=== PATIENT | female | born 1950 | race Caucasian/White ===

== ENCOUNTER 2021-10-20 04:25 | Inpatient (IN) | payer MEDICARE, OTHER ==
[~2021-10-20] VITALS: Ht 157.5 cm; Wt 61.2 kg
[~2021-10-20 04:25] MED LIST: ALPRAZOLAM0.5 MG PO; COLACE 100MG C100 MG PO; CYMBALTA 30 MG30 MG PO; GLUCOPHAGE XR750 MG PO; MIRALAX17 GM PO; NORVASC 5 MG TAB5 MG PO; PRINIVIL10 MG PO; SYNTHROID50 MCG PO; [UNRECOGNIZED DRUG - OTHER]
[2021-10-20] MEDS ORDERED: ISOSORBIDE MONO30 MG PO (10:36)
[2021-10-20] MEDS ORDERED: TRADJENTA5 MG PO (10:36)
[2021-10-20] MEDS ORDERED: ATORVASTATIN CA40 MG PO (10:36)
[2021-10-20] MEDS ORDERED: TASIGNA150 MG PO (10:37)
[2021-10-20] MEDS ORDERED: HYDROCODON-ACE1 EAC4 PO (10:37)
[2021-10-20] MEDS ORDERED: ALLOPURINOL300 MG PO (10:37)
[2021-10-20] MEDS ORDERED: VOLTAREN ARTHRI20 GM TP (10:38)
[2021-10-20] MEDS ORDERED: CELECOXIB200 MG PO (10:38)
[2021-10-21 09:29] LABS: RED BLOOD COUNT 2.6 M/UL (4.00-5.10); WHITE BLOOD COUNT 29.5 K/UL (4.5-11.0)
[2021-10-21 09:30] LABS: HEMOGLOBIN 7.7 gm/dl (12.3-15.3)
[2021-10-22 08:06] LABS: RED BLOOD COUNT 2.47 M/UL (4.00-5.10)
[2021-10-22 08:41] LABS: WHITE BLOOD COUNT 32.7 K/UL (4.5-11.0)
--- NOTE | 2021-10-22 11:02 | NUR ---
NOTIFIED AT 0900 THAT PT WBC WAS 30 HGB OF 7
[2021-10-23 06:50] LABS: RED BLOOD COUNT 2.35 M/UL (4.00-5.10)
[2021-10-23 06:59] LABS: HEMOGLOBIN 6.9 gm/dl (12.3-15.3); WHITE BLOOD COUNT 34.1 K/UL (4.5-11.0)
--- NOTE | 2021-10-23 07:02 | NUR ---
NOTIFIED MD OF CRITICAL HGB AND WBC NO ORDERS GIVEN WILL NOTIFY DAYSHIFT FOR PT IS ONCOLOGY/HEMATOLOGY PATIENT
[2021-10-23 11:14] LABS: HBSAG SCREEN Negative (Negative); HEP A AB, IGM Negative (Negative); HEP B CORE AB, IGM Negative (Negative); HEP C VIRUS AB 0.2 (0.0-0.9)
[2021-10-24 06:32] LABS: HEMOGLOBIN 8.7 gm/dl (12.3-15.3); RED BLOOD COUNT 2.98 M/UL (4.00-5.10); WHITE BLOOD COUNT 26.5 K/UL (4.5-11.0)
[2021-10-24] MEDS ORDERED: SODIUM BICARBO650 M1 PO (13:10)
== END 2021-10-24 16:11 | disposition home or self-care (01) | DRG 682 ==
LOC: M/S 06:10
PROVIDERS: Internal Medicine; Internal Medicine Hematology & Oncology; Internal Medicine Nephrology; Registered Nurse; ADMIT Internal Medicine
PROC: 30233N1 Transfusion of Nonautologous Red Blood Cells into Peripheral Vein, Percutaneous Approach (ICD-10-PCS; principal; 2021-10-23)
DX: N17.9 Acute kidney failure, unspecified (principal); G93.41 Metabolic encephalopathy; C92.10 Chronic myeloid leukemia, BCR/ABL-positive, not having achieved remission; E87.2 Acidosis; R65.10 Systemic inflammatory response syndrome (SIRS) of non-infectious origin without acute organ dysfunction; S36.119A Unspecified injury of liver, initial encounter; E87.1 Hypo-osmolality and hyponatremia; N14.1 Nephropathy induced by other drugs, medicaments and biological substances; R74.01 Elevation of levels of liver transaminase levels; G89.29 Other chronic pain; E03.9 Hypothyroidism, unspecified; F41.9 Anxiety disorder, unspecified; T45.1X5A Adverse effect of antineoplastic and immunosuppressive drugs, initial encounter; I11.0 Hypertensive heart disease with heart failure; I50.9 Heart failure, unspecified; D63.0 Anemia in neoplastic disease; E78.5 Hyperlipidemia, unspecified; E80.6 Other disorders of bilirubin metabolism; E11.9 Type 2 diabetes mellitus without complications; Z85.038 Personal history of other malignant neoplasm of large intestine; Z98.890 Other specified postprocedural states; Z79.899 Other long term (current) drug therapy; Z80.3 Family history of malignant neoplasm of breast; Z79.84 Long term (current) use of oral hypoglycemic drugs; K75.89 Other specified inflammatory liver diseases
CPT/HCPCS: ECHO; 36415; 71045; 76705; 80053; 80074; 81001; 82140; 82248; 82803; 82962; 83605; 83615; 83735; 84100; 84443; 84550; 85007; 85025; 85027; 86850; 86900; 86901; 86920; 87040; 87086; 93005; 93306; 94760; 97161; 97165; J1940; J2270; J7030; P9040; P9047; U0002

== ENCOUNTER → 2022-01-27 | Outpatient (CLI) | payer MEDICARE, OTHER ==
[~2022-01-27] MED LIST changes: +ALLOPURINOL300 MG PO; +ATORVASTATIN CA40 MG PO; +CELECOXIB200 MG PO; +HYDROCODON-ACE1 EAC4 PO; +ISOSORBIDE MONO30 MG PO; +SODIUM BICARBO650 M1 PO; +TASIGNA150 MG PO; +TRADJENTA5 MG PO; +VOLTAREN ARTHRI20 GM TP
[2022-01-27 14:01] LABS: HEMOGLOBIN 7.8 gm/dl (12.3-15.3)
== END ==
LOC: LAB 12:08
PROVIDERS: Internal Medicine Hematology & Oncology
DX: D64.9 Anemia, unspecified (principal); R53.83 Other fatigue
CPT/HCPCS: 36415; 85014; 85018; 86850; 86920

== ENCOUNTER → 2022-01-28 | Outpatient (CLI) | payer MEDICARE, MEDICAID | LOC: OPSV 07:52 | DX: D64.9 Anemia, unspecified (principal); D72.829 Elevated white blood cell count, unspecified | CPT/HCPCS: G0463 ==

== ENCOUNTER → 2022-03-05 | Outpatient (CLI) | payer MEDICARE ==
[~2022-03-05] MED LIST changes: +AMLODIPINE BESYL5 MG PO; +METOPROLOL SUCC25 MG PO
== END ==
LOC: RAD 12:52
DX: C92.10 Chronic myeloid leukemia, BCR/ABL-positive, not having achieved remission (principal); Z79.899 Other long term (current) drug therapy
CPT/HCPCS: 71046; 93005

== ENCOUNTER 2022-03-09 13:28 | Inpatient (IN) | payer MEDICARE ==
[~2022-03-09] VITALS: Ht 157.5 cm; Wt 61.2 kg
[~2022-03-09 13:28] MED LIST changes: -ALPRAZOLAM0.5 MG PO; -ATORVASTATIN CA40 MG PO; -GLUCOPHAGE XR750 MG PO; -METOPROLOL SUCC25 MG PO; -SYNTHROID50 MCG PO; +SYNTHROID75 MCG PO
[2022-03-09 14:31] LABS: HEMOGLOBIN 9.9 gm/dl (12.3-15.3); RED BLOOD COUNT 3.31 M/UL (4.00-5.10); WHITE BLOOD COUNT 3.8 K/UL (4.5-11.0)
[2022-03-10 03:38] LABS: HEMOGLOBIN 9.1 gm/dl (12.3-15.3); RED BLOOD COUNT 3.05 M/UL (4.00-5.10); WHITE BLOOD COUNT 3.1 K/UL (4.5-11.0)
[2022-03-10] MEDS ORDERED: ALPRAZOLAM0.5 MG PO (07:54)
[2022-03-10] MEDS ORDERED: METFORMIN HCL750 MG PO (07:57)
[2022-03-10] MEDS ORDERED: ATORVASTATIN CA40 MG PO (10:36)
[2022-03-10] MEDS ORDERED: METOPROLOL SUCC25 MG PO (22:14)
[2022-03-11 01:22] LABS: CANDIDA ALBICANS Not Detected (Negative); CANDIDA KRUSEI Not Detected (Negative); CANDIDA TROPICALIS Not Detected (Negative); ESCHERICHIA COLI Not Detected (Negative); HAEMOPHILUS INFLUENZAE Not Detected (Negative); KLEBSIELLA OXYTOCA Not Detected (Negative); KLEBSIELLA PNEUMONIAE Not Detected (Negative); KPC-CARBAPENEM-RESISTANCE GENE Not Detected (Negative); PROTEUS Not Detected (Negative); PSEUDOMONAS AERUGINOSA Not Detected (Negative); SERRATIA MARCESANS Not Detected (Negative); STAPHYLOCOCCUS AUREUS Not Detected (Negative); STREP AGALACTIAE (GROUP B) Not Detected (Negative); STREP PYOGENES (GROUP A) Not Detected (Negative); STREPTOCOCCUS Not Detected (Negative); vanA/B (VANCOMYCIN RESIST GENE Not Detected (Negative)
[2022-03-11 03:31] LABS: STAPHYLOCOCCUS DETECTED (Negative)
[2022-03-11 06:36] LABS: HEMOGLOBIN 9.6 gm/dl (12.3-15.3); RED BLOOD COUNT 3.2 M/UL (4.00-5.10)
[2022-03-11 06:40] LABS: WHITE BLOOD COUNT 4.3 K/UL (4.5-11.0)
[2022-03-11 14:09] LABS: BODY FLUID SOURCE PLEURAL; RBC (AUTOMATED) 3800 (0-100000); WBC (AUTOMATED) 322 (0-500)
[2022-03-11 14:10] LABS: MONONUCLEAR CELLS 89.1 (75-100); POLYMORPHONUCLEAR % 10.9 (0-25)
[2022-03-11 14:37] LABS: AMYLASE, BODY FLUID 35 U/L; LDH, BODY FLUID 147 U/L; TOTAL PROTEIN, BODY FLUID 2.6 gm/dL
[2022-03-12 03:32] LABS: HEMOGLOBIN 8.9 gm/dl (12.3-15.3); RED BLOOD COUNT 2.98 M/UL (4.00-5.10); WHITE BLOOD COUNT 4.6 K/UL (4.5-11.0)
--- NOTE | 2022-03-12 10:14 | NUR ---
1014- NOTIFIED DR LOUIE OF CRITICAL POTASSIUM OF 2.9. STATED TO REPLACE USING PROTOCOL. WILL CONTINUE TO MONITOR.
[2022-03-12 15:25] LABS: BODY FLUID SOURCE PLEURAL; MONONUCLEAR CELLS 98.8 (75-100); POLYMORPHONUCLEAR % 1.2 (0-25); RBC (AUTOMATED) 3300 (0-100000); WBC (AUTOMATED) 603 (0-500)
[2022-03-12 15:39] LABS: AMYLASE, BODY FLUID 37 U/L; LDH, BODY FLUID 130 U/L; TOTAL PROTEIN, BODY FLUID 2.8 gm/dL
[2022-03-13 03:31] LABS: HEMOGLOBIN 8.9 gm/dl (12.3-15.3); RED BLOOD COUNT 2.97 M/UL (4.00-5.10); WHITE BLOOD COUNT 4.4 K/UL (4.5-11.0)
--- NOTE | 2022-03-13 12:46 | NUR ---
PATIENTS 02 SAT 95% UPON AMBULATION WITH NO 02 SUPPLIMENT.
[2022-03-13] MEDS ORDERED: LEVOFLOXACIN750 MG PO (13:13)
[2022-03-13] MEDS ORDERED: MEDROL4 MG PO (13:18)
[2022-03-13] MEDS ORDERED: MAGNESIUM OXID400 M1 PO (13:18)
[2022-03-13] MEDS ORDERED: POTASSIUM CHLO20 ME1 PO (13:18)
[2022-03-13] MEDS ORDERED: LASIX40 MG PO (13:18)
== END 2022-03-13 13:52 | disposition home or self-care (01) | DRG 193 ==
LOC: ER1 13:28 → CDU 17:28 → MED SURG 4 17:28
PROVIDERS: Nurse Practitioner; Nurse Practitioner Family; Registered Nurse; ADMIT Internal Medicine
PROC: 0W9B3ZZ Drainage of Left Pleural Cavity, Percutaneous Approach (ICD-10-PCS; principal; 2022-03-11)
PROC: 0W993ZZ Drainage of Right Pleural Cavity, Percutaneous Approach (ICD-10-PCS; 2022-03-12)
PROC: B24BZZZ Ultrasonography of Heart with Aorta (ICD-10-PCS; 2022-03-12)
DX: J18.9 Pneumonia, unspecified organism (principal); J96.21 Acute and chronic respiratory failure with hypoxia; J90 Pleural effusion, not elsewhere classified; C92.11 Chronic myeloid leukemia, BCR/ABL-positive, in remission; N17.9 Acute kidney failure, unspecified; D84.821 Immunodeficiency due to drugs; I31.3 Pericardial effusion (noninflammatory); I50.32 Chronic diastolic (congestive) heart failure; I13.0 Hypertensive heart and chronic kidney disease with heart failure and stage 1 through stage 4 chronic kidney disease, or unspecified chronic kidney disease; Z20.822 Contact with and (suspected) exposure to COVID-19; N18.9 Chronic kidney disease, unspecified; F32.A Depression, unspecified; D64.9 Anemia, unspecified; E07.9 Disorder of thyroid, unspecified; I27.20 Pulmonary hypertension, unspecified; T45.1X5A Adverse effect of antineoplastic and immunosuppressive drugs, initial encounter; E11.22 Type 2 diabetes mellitus with diabetic chronic kidney disease; R94.5 Abnormal results of liver function studies; F41.9 Anxiety disorder, unspecified; Z92.21 Personal history of antineoplastic chemotherapy; Z79.84 Long term (current) use of oral hypoglycemic drugs; Z79.899 Other long term (current) drug therapy; Z85.038 Personal history of other malignant neoplasm of large intestine
CPT/HCPCS: ECHO; 0240U; 36415; 36600; 71045; 71046; 80048; 80053; 80202; 81001; 82150; 82550; 82553; 82803; 82945; 82962; 83605; 83615; 83735; 83880; 83986; 84075; 84132; 84157; 84484; 85025; 85379; 86140; 87040; 87070; 87077; 87150; 87186; 87205; 89051; 93005; 93306; 96374; 97161; 97165; 99285; C1729; J0360; J0456; J0696; J1650; J1940; J3370; J3475; J7030; J7070

== ENCOUNTER → 2022-03-16 | Outpatient (CLI) | payer MEDICARE ==
[~2022-03-16] MED LIST changes: +ALPRAZOLAM0.5 MG PO; +ATORVASTATIN CA40 MG PO; +LASIX40 MG PO; +LEVOFLOXACIN750 MG PO; +MAGNESIUM OXID400 M1 PO; +MEDROL4 MG PO; +METFORMIN HCL750 MG PO; +METOPROLOL SUCC25 MG PO; +POTASSIUM CHLO20 ME1 PO
== END ==
LOC: RAD 15:00
DX: C92.10 Chronic myeloid leukemia, BCR/ABL-positive, not having achieved remission (principal); Z79.899 Other long term (current) drug therapy
CPT/HCPCS: 71046

== ENCOUNTER → 2022-03-31 | Outpatient (CLI) | payer MEDICARE, OTHER | LOC: EXRD 14:55 | DX: J18.9 Pneumonia, unspecified organism (principal) | CPT/HCPCS: 71046 ==

== ENCOUNTER → 2022-04-18 | Outpatient (CLI) | payer MEDICARE ==
[2022-04-18 11:38] LABS: HEMOGLOBIN 10.1 gm/dl (12.3-15.3); RED BLOOD COUNT 3.39 M/UL (4.00-5.10); WHITE BLOOD COUNT 7.6 K/UL (4.5-11.0)
== END ==
LOC: LAB 10:55
PROVIDERS: Internal Medicine
DX: C92.10 Chronic myeloid leukemia, BCR/ABL-positive, not having achieved remission (principal); Z79.899 Other long term (current) drug therapy
CPT/HCPCS: 80053; 83735; 84100; 85027